=== PATIENT | male | born 2005 | race Hispanic/Latino ===

== ENCOUNTER 2024-10-07 04:17 | Emergency (ER) | payer BC ==
--- OUTSIDE RECORDS SUMMARY | 2024-10-07 04:19 | XMS REPORT | Continuity of Care Document ---
Author Name Unknown Address [address] [place] [address] [facility] Address [address] [place] [address] Care Team Providers Care Chemical Applicator Name Role Phone WAYNE MCNAIR Primary Care Physician Unavaila Rom Castellanos Attending Clinician Unavailable Rom HEARN Attending Clinician Unavailable Payers Payer Name Policy Type Policy Number Effective Date Expirati on Date Source [facility] [id number] 00:00:00 Allergies, Adverse Reactions, Alerts Allergy Name Allergy Type Status Severity Reaction(s) Onset Date Inactive Date Treating Clinician Comments Source NO KNOWN ALLERGIE S Drug Class Active [facility] Encounters Start Date/Time End Date/Time Encounter Type Admission Type Attending Clinicians Care Facility Care Department Encounter ID Source 2024-09-28 22:24:00 2024-09-29 00:52:00 Emergency X Rom HEARN K [facility] ERT [id number] [facility]
[2024-10-07] MEDS ORDERED: LORAZEPAM 1 MG TABLET ONE (04:37)
--- NOTE | 2024-10-07 05:39 | EDPHYS ---
Physician Documentation [facility] Name: Barry Sumner Age: 19 yrs Sex: Male : 2005 Arrival Date: 10/07/2024 Time: 04:17 Bed 13 Private MD: NARDA Physician Paulino Frank HPI: 10/07 04:30 This 19 yrs old Male presents to ER via Ambulatory with complaints of cp Dizziness, PAIN/TINGLING-BACK OF HEAD. 04:30 The patient presents with dizziness, lightheadedness. Associated signs and symptoms: cp Pertinent positives: tingling, pressure in head, Pertinent negatives: confusion, diaphoresis, focal weakness, head injury, headache, vomiting. Patient's baseline: Neuro: alert and fully oriented, Motor: no deficits, Ambulation: walks without assistance, Speech: normal. Historical: - Allergies: 04:39 No Known Allergies; br2 - PMHx: 04:39 None; br2 - PSHx: 04:39 None; br2 - Immunization history:: Adult Immunizations not up to date. - Infectious Disease History:: Denies. - Social history:: Smoking status: Reported history of juuling and/or vaping. Patient uses alcohol, occasionally. Patient/guardian denies using street drugs. Exam: 04:45 Head/Face: Normocephalic, atraumatic. cp 04:45 Constitutional: The patient appears in no acute distress, alert, awake, non-diaphoretic, non-toxic, well developed, well nourished, anxious, 04:45 Eyes: Periorbital structures: appear normal, Pupils: equal, round, and reactive to light and accomodation, Extraocular movements: intact throughout, Conjunctiva: normal, no exudate, no injection, Sclera: no appreciated abnormality, Lids and lashes: appear normal, bilaterally, 04:45 ENT: External ear(s): are unremarkable, Nose: is normal, Mouth: Lips: moist, Oral mucosa: moist, Posterior pharynx: Airway: no evidence of obstruction, patent, 04:45 Neck: ROM/movement: is normal, is supple, without pain, no range of motions limitations, 04:45 Chest/axilla: Inspection: normal, 04:45 Cardiovascular: Rate: normal, Rhythm: regular, 04:45 Respiratory: the patient does not display signs of respiratory distress, Respirations: normal, no use of accessory muscles, no retractions, labored breathing, is not present, Breath sounds: are clear throughout, no decreased breath sounds, no stridor, no wheezing, 04:45 Abdomen/GI: Inspection: obese Palpation: abdomen is soft and non-tender, in all quadrants, 04:45 Neuro: Orientation: to person, place \T\ time. Mentation: is normal, Cerebellar function: is grossly normal, Motor: moves all fours, strength is normal, Sensation: no obvious gross deficits, Gait: is steady, at a normal pace, without difficulty, Vital Signs: 04:38 BP 145 / 84; Pulse 86; Resp 18; Temp 97.4(TE); Pulse Ox 97% on R/A; Weight 149.69 kg; br2 Height 5 ft. 11 in. ; Pain 0/10; 05:32 BP 147 / 75; Pulse 79; Resp 18; Pulse Ox 99% ; cp4 06:43 BP 140 / 53; Pulse 77; Resp 18; Pulse Ox 98% ; cp4 04:38 Body Mass Index 46.03 (149.69 kg, 180.34 cm) br2 04:38 Pain Scale: Adult br2 MDM: 04:24 Medical Screening Exam initiated cp Administered Medications: 04:31 CANCELLED (Physician Discretion): lorazepam1 mg PO once cp 04:40 Drug: LORazepam PO 1 mg PO once Route: PO; cp4 06:46 Follow up: Response: No adverse reaction cp4 Disposition Summary: 10/07/24 05:39 Discharge Ordered Notes: Location: Home cp Problem: new cp Symptoms: have improved cp Condition: Stable cp Diagnosis - Anxiety disorder, unspecified cp Followup: cp - With: Private Physician - When: 2 - 3 days - Reason: Recheck today's complaints Discharge Instructions: - Discharge Summary Sheet cp - Generalized Anxiety Disorder, Adult cp - Managing Anxiety, Adult cp Forms: - Medication Reconciliation Form cp - Antibiotic Education cp - Prescription Opioid Use cp - Patient Portal Instructions cp - Leadership Thank You Letter cp Prescriptions: - Hydroxyzine HCl 50 mg Oral tablet - take 1 tablet ORAL route every 8 hours As needed for anxiety; 20 tablet; cp Refills: 0, Product Selection Permitted Signatures: Paulino Phillips PA PA cp Potter, Christina cp4 [place], Karo, RN RN br2 Corrections: (The following items were deleted from the chart) 04:31 04:31 LORazepam PO 1 mg PO once ordered. cp cp
--- NOTE | 2024-10-07 05:39 | ER ---
Nurse's Notes [facility] Name: Barry Sumner Age: 19 yrs Sex: Male : 2005 Arrival Date: 10/07/2024 Time: 04:17 Bed 13 Private MD: Diagnosis: Anxiety disorder, unspecified Presentation: 10/07 04:36 Chief complaint: Patient states: PT C/O TINGLING TO BACK OF HEAD AND INTERMITTENT br2 DIZZINESS. PT VERY ANXIOUS. 04:38 Coronavirus screen: Client denies travel out of the [place] in the last 14 days. Ebola br2 Screen: Patient denies exposure to infectious person. Initial Sepsis Screen: Does the patient meet any 2 criteria? No. Patient's initial sepsis screen is negative. Does the patient have a suspected source of infection? No. Patient's initial sepsis screen is negative. Risk Assessment: Do you want to hurt yourself or someone else? Patient reports no desire to harm self or others. Onset of symptoms is unknown. 04:38 Method Of Arrival: Ambulatory br2 04:38 Acuity: WALLACE 3 br2 Historical: - Allergies: 04:39 No Known Allergies; br2 - PMHx: 04:39 None; br2 - PSHx: 04:39 None; br2 - Immunization history:: Adult Immunizations not up to date. - Infectious Disease History:: Denies. - Social history:: Smoking status: Reported history of juuling and/or vaping. Patient uses alcohol, occasionally. Patient/guardian denies using street drugs. Screenin:40 [facility] ED Fall Risk Assessment (Adult) History of falling in the last 3 months, br2 including since admission No falls in past 3 months (0 pts) Confusion or Disorientation No (0 pts) Intoxicated or Sedated No (0 pts) Impaired Gait No (0 pts) Mobility Assist Device Used No (0 pt) Altered Elimination No (0 pt) Score/Fall Risk Level 0 - 2 = Low Risk Oriented to surroundings. Abuse screen: Denies threats or abuse. Denies injuries from another. Nutritional screening: No deficits noted. Tuberculosis screening: No symptoms or risk factors identified. Assessment: 04:40 General: Appears in no apparent distress. uncomfortable, Behavior is appropriate for cp4 age, anxious. Pain: Denies pain. Neuro: Level of Consciousness is awake, alert, obeys commands, Oriented to person, place, time, situation. Cardiovascular: Patient's skin is warm and dry. Respiratory: Airway is patent Respiratory effort is even, unlabored. GI: No signs and/or symptoms were reported involving the gastrointestinal system. : No signs and/or symptoms were reported regarding the genitourinary system. EENT: No signs and/or symptoms were reported regarding the EENT system. Derm: No signs and/or symptoms reported regarding the dermatologic system. Musculoskeletal: No signs and/or symptoms reported regarding the musculoskeletal system. Vital Signs: 04:38 BP 145 / 84; Pulse 86; Resp 18; Temp 97.4(TE); Pulse Ox 97% on R/A; Weight 149.69 kg; br2 Height 5 ft. 11 in. ; Pain 0/10; 05:32 BP 147 / 75; Pulse 79; Resp 18; Pulse Ox 99% ; cp4 06:43 BP 140 / 53; Pulse 77; Resp 18; Pulse Ox 98% ; cp4 04:38 Body Mass Index 46.03 (149.69 kg, 180.34 cm) br2 04:38 Pain Scale: Adult br2 ED Course: 04:20 Patient arrived in ED. [id number] 04:24 Paulino Phillips PA is PHCP. cp 04:24 Paulino Frank MD is Attending Physician. cp 04:39 Triage completed. br2 04:40 Pam Novoa is Primary Nurse. cp4 04:40 Placed in gown. Bed in low position. Call light in reach. Side rails up X 1. Provided br2 Education on: PLAN OF CARE. 04:40 No provider procedures requiring assistance completed. Patient did not have IV access cp4 during this emergency room visit. 06:45 Arm band placed on right wrist. Patient placed in waiting room. cp4 Administered Medications: 04:31 CANCELLED (Physician Discretion): lorazepam1 mg PO once cp 04:40 Drug: LORazepam PO 1 mg PO once Route: PO; cp4 06:46 Follow up: Response: No adverse reaction cp4 Medication: 04:40 VIS not applicable for this client. cp4 Outcome: 05:39 Discharge ordered by MD. cp 06:44 Discharged to home ambulatory, cp4 06:44 Condition: stable 06:44 Discharge instructions given to patient, family, Instructed on discharge instructions, follow up and referral plans. medication usage, Demonstrated understanding of instructions, follow-up care, medications, Prescriptions given X 1 06:47 Patient left the ED. cp4 Signatures: Paulino Phillips PA PA cp Jeffries, Jennifer [email or web address] Pam Novoa cp4 Karo Purdy RN RN br2
[2024-10-07 06:54] VITALS: TEMP 97.4
[2024-10-07 06:57] VITALS: BP 140/53; O2SAT 98
== END 2024-10-07 06:47 | disposition home or self-care (01) ==
LOC: ER 04:17
DX: F41.9 Anxiety disorder, unspecified (principal)
CPT/HCPCS: 99283